=== PATIENT | female | born 1995 | race Two or more races ===

== ENCOUNTER 2018-04-15 13:17 | Outpatient (CLI) | END 2018-04-15 14:45 | disposition home or self-care (01) ==

== ENCOUNTER 2018-06-16 00:45 | Outpatient (CLI) | payer OTHER ==
[~2018-06-16] VITALS: Ht 160 cm; Wt 76.3 kg
[~2018-06-16 00:45] MED LIST: PREN-93 PO
[2018-06-16 01:11] VITALS: BP 120/58; PULSE 62; RESP 18
[2018-06-16] MEDS ORDERED: FERR134T PO (01:13)
--- NOTE | 2018-06-16 01:58 | PN ---
Triage Information Date/Time Jun 16, 2018 Reason for visit: Vag spotting / bleeding Weeks of Gestation 39w 2d /Para 2/1 Diabetes: none Hypertention: none Additional information Pt had an exam at the clinic today and was told she was 1 cm. She came in as she had bleeding after the exam and it never seemed to stop but is light. +FM PMHx: none. PSHx: none. POBHx: x 1 with a 27 hour labor. NKDA. Objective Vital Signs Date Temp Pulse Resp B/P (MAP) Pulse Ox O2 O2 Flow FiO2 Time Delivery Rate 06/16/18 98.0 62 18 120/58 Room Air 01:11 (78) Heart Rate: 120's Heart Rate Comments Accels to 160 bpm. No decels. Contractions: >10 Minutes Apart Exam 30%/1-2 cm/-3 Disposition: Discharge Assessment/Plan A: IUP at 39w 2d. False labor. P: D/C home with f/u with Dr Delvalle as scheduled. JENNIFER MARVIN MD Jun 16, 2018 01:57
== END 2018-06-16 01:57 | disposition home or self-care (01) ==
LOC: L-D 00:45 → OBT 00:45
PROVIDERS: ATTEND Obstetrics & Gynecology
DX: O47.1 False labor at or after 37 completed weeks of gestation (principal); Z3A.39 39 weeks gestation of pregnancy
CPT/HCPCS: G0463

== ENCOUNTER 2018-06-23 14:11 | Inpatient (IN) | payer OTHER ==
[~2018-06-23] VITALS: Ht 160 cm; Wt 75.0 kg
[~2018-06-23 14:11] MED LIST changes: +FERR134T PO
[2018-06-23 14:43] VITALS: Ht 160 cm; Wt 75.0 kg
[2018-06-23 14:44] VITALS: BP 110/66; PULSE 79; RESP 18
[2018-06-23] MEDS ORDERED: CARBOPROST 250 MCG INJ IM PRN (17:00)
[2018-06-23] MEDS ORDERED: OXYTOCIN 30 UNITS/LR 500 ML IV SCH ×2 (17:00)
[2018-06-23] MEDS ORDERED: METHYLERGONOVINE 0.2 MG INJ IM PRN (17:00)
[2018-06-23] MEDS ORDERED: BUTORPHANOL 2 MG INJ IV PRN (17:00)
[2018-06-23] MEDS ORDERED: OXYTOCIN 30 UNITS/LR 500 ML IV PRN (17:00)
[2018-06-23] MEDS ORDERED: BUTORPHANOL 1 MG INJ IV PRN (17:00)
[2018-06-23] MEDS ORDERED: MISOPROSTOL 200 MCG TAB PR PRN (17:00)
[2018-06-23] MEDS ORDERED: AMPICILLIN 2 GM/NS (PMX) 100 ML IV ONE (18:30)
[2018-06-23] MEDS ORDERED: AMPICILLIN 2 GM/NS (PMX) 100 ML ONE (18:34)
[2018-06-23] MEDS: LACTATED RINGER'S 1,000 ML IV SCH ×2 (18:38→18:39)
[2018-06-23] MEDS: AMPICILLIN 1 GM/NS (PMX) 50 ML IV SCH (23:51)
[2018-06-24] MEDS: AMPICILLIN 1 GM/NS (PMX) 50 ML IV SCH ×5 (03:36→19:47)
[2018-06-24] MEDS: LACTATED RINGER'S 1,000 ML IV SCH ×2 (05:35→15:43)
[2018-06-24] MEDS ORDERED: OXYTOCIN 30 UNITS/LR 500 ML IV SCH (10:00)
--- NOTE | 2018-06-24 17:03 | HP ---
Date/Time of Note Date/Time of Note DATE: 06/24/18 TIME: 17:01 OB - History Hx of Present Free Text/Dictation at term induced for IUGR Care: Good Care Ultrasounds: Normal mid trimester US Obstetrical Complications: None Medical Complications: None Past Family/Social History * Past Medical, Surgical, Family and Obstetric Histories reviewed from chart. OB Admission Exam Vital Signs Vital Signs Vital Signs Date Temp Pulse Resp B/P (MAP) Pulse Ox O2 O2 Flow FiO2 Time Delivery Rate 06/23/18 98.8 79 18 110/66 14:44 (81) Physical Exam HEENT: WNL Heart: Rhythm Normal Lungs: Clear, Equal Abdomen: WNL Extremities: Normal Reflexes: Normal Cervical Dilatation: 1cm Effacement: 50% Station: -3 Membranes: Ruptured Amniotic Fluid: Clear Heart Rate: 130's Accelerations: Accelerations Present Decelerations: No Decelerations Varibility: Moderate Contractions on Admission: 6-10 Minutes Apart Intensity: Moderate Last 72 hours Lab Results CBC & BMP 06/23/18 17:35 OB Assessment/Plan Reason for admission: induction of labor (for IUGR) Induction Method: per Pitocin Protocol SONG HOBSON MD Jun 24, 2018 17:03
[2018-06-24] MEDS: LIDOCAINE 1% (MPF) 30 ML INJ INJ PRN ×2 (22:39→22:51)
[2018-06-25] VITALS (7 sets, daily range): BP systolic 107–124; BP diastolic 53–68; PULSE 67–82; RESP 17–20
[2018-06-25] MEDS ORDERED: HYDROCODONE/APAP (7.5/325) TAB PO ONE
[2018-06-25] MEDS ORDERED: OXYTOCIN 30 UNITS/LR 500 ML IV SCH (00:26)
[2018-06-25] MEDS: LACTATED RINGER'S 1,000 ML IV* SCH ×2 (00:26→10:28)
[2018-06-25] MEDS ORDERED: CARBOPROST 250 MCG INJ IM PRN (00:30)
[2018-06-25] MEDS ORDERED: HYDROCODONE/APAP (5/325) TAB PO PRN (00:30)
[2018-06-25] MEDS ORDERED: ZOLPIDEM 5 MG TAB PO PRN (00:30)
[2018-06-25] MEDS ORDERED: WITCH HAZEL/GLYCERIN PAD PR PRN (00:30)
[2018-06-25] MEDS ORDERED: ACETAMINOPHEN 325 MG TAB PO PRN (00:30)
[2018-06-25] MEDS ORDERED: NACL 0.9% 3 ML SYG IV SCH (00:30)
[2018-06-25] MEDS ORDERED: MISOPROSTOL 200 MCG TAB PR PRN (00:30)
[2018-06-25] MEDS ORDERED: ONDANSETRON 4 MG INJ IV PRN (00:30)
[2018-06-25] MEDS ORDERED: DIPHENHYDRAMINE 25 MG CAP PO PRN (00:30)
[2018-06-25] MEDS: SENNA/DOCUSATE NA (8.6MG/50MG) TAB PO SCH ×2 (00:30→09:52)
[2018-06-25] MEDS ORDERED: LANOLIN HPA 1 PKT TOP PRN (00:30)
--- NOTE | 2018-06-25 00:34 | LDN ---
Date/Time of Note Date/Time of Note DATE: 06/25/18 TIME: 00:32 Delivery Summary I was called to attend delivery of the patient due to unavailability of the attending physician. 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 I was called by RN due to patient significant urge to push.No Epidural Attended to the patient bedside. Exam: Complete anterior lip 0-+1. Patient has significant urge to push. Shortly after this complete complete +1. of viable term baby. Without any complication. First-degree bilateral labial laceration noted and repaired after infiltration of the both labia is with about 45 cc of lidocaine with 3-0 chromic. Weeks of Gestation 39.3 week Placenta Delivered: Spontaneously Meconium: none Episiotomy: Yes Indication for episiotomy N/A Perineal laceration: 0 Laceration repair: First degree Bilateral labial lacerations noted and repaired after local infiltration with lidocaine. Anesthesia type: None Estimated blood loss: 200 Sponge & Needle done & correct: Yes All needle counts correct: Yes Any foreign bodies felt in the: No Infant Delivery Information Sex Infant Sex: male Apgars 1 Minute: 8 5 Minute: 9 Suctioning Nose & mouth suctioned at kyle: Yes Delee suction performed: Yes Umbilical Cord Umbilical cord with: 3 Vessels Cord presentations: no nuchal cord Cord Blood was obtained: Yes Mother & Baby Disposition Disposition Placenta was delivered complete. first degree Bilateral labial laceration noted. repaired after local infiltration with about 5 cc of lidocaine using 3-0 chromic MERCEDES MIXON MD Jun 25, 2018 00:34
[2018-06-25] MEDS: IBUPROFEN 600 MG TAB PO SCH ×3 (06:19→17:45)
--- NOTE | 2018-06-25 06:32 | NUR ---
EOSS: PATIENT IS IN STABLE CONDITION. VOIDED X1. FUNDUS FIRM WITH MODERATE AMOUNT OF LOCHIA. BONDING WELL WITH . FEEDING FORMULA, MOTHER'S PREFERENCE, VIA BOTTLE. PATIENT IS AFEBRILE. FOB AT BEDSIDE.
--- NOTE | 2018-06-25 09:35 | DS ---
Date/Time of Note Date/Time of Note DATE: 06/25/18 TIME: 09:34 Discharge Summary Admission/Discharge Info Admit Date/Time Jun 23, 2018 at 16:45 Discharge Date/Time Discharge Diagnosis term Patient Condition: Stable Hospital Course unremarkable Home Meds Reported Medications Ferrous Sulfate (Iron) 134 Mg Tablet, 134 MG PO DAILY, TAB 06/16/18 Vit No.124/Iron/FA ( Vitamin Tablet) 1 Each Tablet, 1 EACH PO DAILY, TAB 04/15/18 Primary Care Provider Care Physician No Primary Pending Labs Laboratory Tests Test 06/25/18 06:27 06/25/18 06:44 Hemoglobin 11.5 g/dl (12.0-16.0) Hematocrit 34.2 % (37.0-47.0) Hepatitis B Surface Antigen NEGATIVE (NEGATIVE) Lab Scanned Report [facility] [id number] SONG HOBSON MD Jun 25, 2018 09:35
--- NOTE | 2018-06-25 13:30 | NUR ---
D/C IV AT THIS TIME PER PATIENT REQUEST. TIP INTACT, PATIENT TOLERATED WELL. PATIENT REFUSED TO HANG NEW IV BAG STATING SHE IS DRINKING AND TOLERATING FLUIDS, AND VOIDING WITHOUT DIFFICULTY.
--- NOTE | 2018-06-25 18:07 | NUR ---
EOSS: VS WNL, FUNDUS FIRM, MINIMAL LOCHIA. PATIENT VOIDED, NO BM. H&H DONE TODAY. NO COMPLAINTS OF PAIN OR DISCOMFORT AT THIS TIME. BONDING WELL WITH BABY. D/C ORDER FOR TOMORROW. Tdap NEEDS TO BE GIVEN PRIOR DISCHARGE.
[2018-06-26] MEDS: SENNA/DOCUSATE NA (8.6MG/50MG) TAB PO SCH ×2 (00:08→08:24)
[2018-06-26] MEDS: IBUPROFEN 600 MG TAB PO SCH ×3 (00:08→12:16)
[2018-06-26 04:00] VITALS: BP 121/58; PULSE 71; RESP 19
[2018-06-26 08:00] VITALS: BP 107/53; PULSE 98; RESP 18
[2018-06-26] MEDS ORDERED: DIPHTH/TET/ACEL PERTUSS (ADULT) 0.5 ML VIAL IM* ONE (12:30)
--- NOTE | 2018-06-26 13:51 | NUR ---
discharge teaching given to pt, reminded pt, regarding side effect of medication . also prevention of infection . follow up in clinic . pt, demonstrated that she understood.
--- NOTE | 2018-06-26 14:30 | NUR ---
discharged home with baby and family.
[2018-06-27] MEDS ORDERED: VARICELLA VACCINE LIVE/PF 1,350 UNIT/0.5 ML ML SC* ONE (09:00)
[2018-06-27] MEDS ORDERED: MEASLES,MUMPS,RUBELLA VACCINE INJ SC* ONE (09:00)
== END 2018-06-26 14:45 | disposition home or self-care (01) | DRG 807 ==
LOC: OBT 14:11 → L-D 14:12 → OBT 16:45 → PP1 06-25 00:48
PROVIDERS: ADMIT Obstetrics & Gynecology; ATTEND Obstetrics & Gynecology
PROC: 10E0XZZ Delivery of Products of Conception, External Approach (ICD-10-PCS; principal; 2018-06-25)
PROC: 0UQMXZZ Repair Vulva, External Approach (ICD-10-PCS; 2018-06-25)
DX: O36.5930 Maternal care for other known or suspected poor fetal growth, third trimester, not applicable or unspecified (principal); Z37.0 Single live birth; Z3A.39 39 weeks gestation of pregnancy; O70.0 First degree perineal laceration during delivery
CPT/HCPCS: 76815; 76818; 84112; 85014; 85018; 85025; 85610; 85730; 86592; 86850; 86900; 86901; 87340; 90715; 99464; G0463; J0290; J0595; J2210; J2590; J7120